=== PATIENT | male | born 1945 | race Caucasian/White ===

== ENCOUNTER 2020-08-23 21:40 | Inpatient (IN) ==
[2020-08-23] MEDS ORDERED: Sennosides/Docusate Sodium TABLET PO PRN (22:34)
[2020-08-23] MEDS ORDERED: Nitroglycerin 0.4 MG TAB.SUBL SL PRN (22:34)
[2020-08-23] MEDS ORDERED: Nystatin POWDER 30 GM BOTTLE TP PRN (22:34)
[2020-08-23] MEDS ORDERED: Furosemide 20 MG TABLET PO PRN (22:34)
[2020-08-23] MEDS ORDERED: Acetaminophen 325 MG TABLET PO PRN (22:34)
[2020-08-23] MEDS ORDERED: Ondansetron ODT 4 MG TAB.RAPDIS SL PRN (22:34)
[2020-08-23] MEDS ORDERED: *HR* Dextrose 50 % in Water (Vial) 50 ML VIAL IVP PRN (22:39)
[2020-08-23] MEDS ORDERED: Dextrose Gel 15 GM/37.5 ML TUBE PO PRN ×2 (22:39)
[2020-08-23] MEDS ORDERED: D5% in Water 1,000 ML IVC PRN (22:39)
[2020-08-24] MEDS: *HR* Enoxaparin 40 MG/0.4 ML SYRINGE SQ SCH (04:43)
[2020-08-24 04:53] LABS: Basophils # 0.1 K/mcL (0.0-0.2); Basophils % 0.8 %; Eosinophils # 0.3 K/mcL (0.0-0.6); Hematocrit 40.7 % (37.5-50.1); Hemoglobin 13.7 g/dL (12.9-16.9); Immature Granulocytes % 0.4 % (0-4); Lymphocytes # 1.4 K/mcL (0.6-4.6); Lymphocytes % 19.3 %; Mean Corpuscular HGB Conc 33.7 g/dL (31.6-35.5); Mean Corpuscular Hemoglobin 29.3 pg (28.0-33.3); Mean Corpuscular Volume 87.2 fL (83.0-100.0); Mean Platelet Volume 9.4 fL (9.4-12.4); Monocytes # 0.8 K/mcL (0.0-1.3); Monocytes % 10.5 %; Neutrophils # 4.7 K/mcL (1.6-8.9); Platelet Count 145 K/mcL (140-400); Red Blood Count 4.67 M/mcL (4.19-5.50); White Blood Count 7.2 K/mcL (4.3-11.1)
[2020-08-24 05:08] LABS: BUN/Creatinine Ratio 20 (6-26); Blood Urea Nitrogen 17 mg/dL (8-23); Carbon Dioxide 26 mEq/L (23-29); Chloride 101 mEq/L (98-107); Glucose 148 mg/dL (70-105); Osmolality,Calculated 288 (280-300); Potassium 3.9 mEq/L (3.5-5.1); Sodium 137 mEq/L (136-145); eGFR For African Americans > 60 (> 60); eGFR For Non-African Americans > 60 (> 60)
[2020-08-24] MEDS: Insulin LISPRO 300 UNITS/3 ML VIAL SUBQ SCH ×3 (08:01→18:45)
[2020-08-24] MEDS: carvediloL 6.25 MG TABLET PO SCH ×2 (08:53→18:45)
[2020-08-24] MEDS: Ranolazine 500 MG TAB.ER.12H PO SCH (08:53)
[2020-08-24] MEDS: Loratadine 10 MG TABLET PO SCH (08:54)
[2020-08-24] MEDS: Sucralfate 1 GM TABLET PO SCH ×2 (08:54→20:28)
[2020-08-24] MEDS: FLUoxetine 20 MG CAPSULE PO SCH (08:54)
[2020-08-24] MEDS: Aspirin Enteric Coated 81 MG Tablet PO SCH (08:54)
[2020-08-24] MEDS: Cyanocobalamin (B-12) 1,000 MCG TABLET PO SCH (08:54)
[2020-08-24] MEDS: NIFEdipine XL (24 HR) 60 MG TAB.ER.24 PO SCH (08:54)
[2020-08-24] MEDS: Gabapentin 300 MG CAPSULE PO SCH ×2 (08:54→20:28)
[2020-08-24] MEDS: Simethicone 80 MG TAB.CHEW PO SCH ×2 (08:55→20:27)
[2020-08-24] MEDS: Fluticasone Propionate Nasal 50 MCG/SPRAY BOTTLE NS SCH (08:56)
[2020-08-24] MEDS: polyethylene glycoL 3350 17 GM POWD.PACK PO SCH (08:56)
[2020-08-24] MEDS: Insulin DETEMIR 100 UNIT/ML X5UNITS SUBQ SCH ×2 (09:04→20:27)
[2020-08-24] MEDS: Melatonin 3 MG TABLET PO SCH (20:27)
[2020-08-24] MEDS: Famotidine 20 MG TABLET PO SCH (20:28)
[2020-08-25] MEDS: *HR* Enoxaparin 40 MG/0.4 ML SYRINGE SQ SCH (05:03)
[2020-08-25] MEDS: Insulin LISPRO 300 UNITS/3 ML VIAL SUBQ SCH ×3 (08:50→16:34)
[2020-08-25] MEDS: NIFEdipine XL (24 HR) 60 MG TAB.ER.24 PO SCH (09:52)
[2020-08-25] MEDS: Aspirin Enteric Coated 81 MG Tablet PO SCH (09:52)
[2020-08-25] MEDS: Simethicone 80 MG TAB.CHEW PO SCH ×2 (09:52→20:26)
[2020-08-25] MEDS: Gabapentin 300 MG CAPSULE PO SCH ×2 (09:52→20:25)
[2020-08-25] MEDS: Loratadine 10 MG TABLET PO SCH (09:52)
[2020-08-25] MEDS: Cyanocobalamin (B-12) 1,000 MCG TABLET PO SCH (09:52)
[2020-08-25] MEDS: Sucralfate 1 GM TABLET PO SCH ×2 (09:52→20:26)
[2020-08-25] MEDS: FLUoxetine 20 MG CAPSULE PO SCH (09:52)
[2020-08-25] MEDS: Ranolazine 500 MG TAB.ER.12H PO SCH (09:52)
[2020-08-25] MEDS: polyethylene glycoL 3350 17 GM POWD.PACK PO SCH (09:53)
[2020-08-25] MEDS: Fluticasone Propionate Nasal 50 MCG/SPRAY BOTTLE NS SCH (09:53)
[2020-08-25] MEDS: carvediloL 6.25 MG TABLET PO SCH ×2 (09:53→16:34)
[2020-08-25] MEDS: Insulin DETEMIR 100 UNIT/ML X5UNITS SUBQ SCH ×2 (10:37→20:32)
[2020-08-25] MEDS: Famotidine 20 MG TABLET PO SCH (20:26)
[2020-08-25] MEDS: Melatonin 3 MG TABLET PO SCH (20:26)
[2020-08-26] MEDS: *HR* Enoxaparin 40 MG/0.4 ML SYRINGE SQ SCH (05:03)
[2020-08-26] MEDS: Insulin LISPRO 300 UNITS/3 ML VIAL SUBQ SCH ×3 (07:51→16:48)
[2020-08-26] MEDS: Aspirin Enteric Coated 81 MG Tablet PO SCH (09:53)
[2020-08-26] MEDS: FLUoxetine 20 MG CAPSULE PO SCH (09:53)
[2020-08-26] MEDS: Simethicone 80 MG TAB.CHEW PO SCH ×2 (09:53→21:15)
[2020-08-26] MEDS: Loratadine 10 MG TABLET PO SCH (09:53)
[2020-08-26] MEDS: Ranolazine 500 MG TAB.ER.12H PO SCH (09:53)
[2020-08-26] MEDS: Sucralfate 1 GM TABLET PO SCH ×2 (09:53→21:15)
[2020-08-26] MEDS: NIFEdipine XL (24 HR) 60 MG TAB.ER.24 PO SCH (09:53)
[2020-08-26] MEDS: Cyanocobalamin (B-12) 1,000 MCG TABLET PO SCH (09:53)
[2020-08-26] MEDS: polyethylene glycoL 3350 17 GM POWD.PACK PO SCH (09:54)
[2020-08-26] MEDS: carvediloL 6.25 MG TABLET PO SCH ×2 (09:54→16:49)
[2020-08-26] MEDS: Fluticasone Propionate Nasal 50 MCG/SPRAY BOTTLE NS SCH (09:54)
[2020-08-26] MEDS: Gabapentin 300 MG CAPSULE PO SCH ×2 (09:54→21:15)
[2020-08-26] MEDS: Insulin DETEMIR 100 UNIT/ML X5UNITS SUBQ SCH ×2 (10:00→21:17)
[2020-08-26] MEDS: Famotidine 20 MG TABLET PO SCH (21:15)
[2020-08-26] MEDS: Melatonin 3 MG TABLET PO SCH (21:15)
[2020-08-27] MEDS: *HR* Enoxaparin 40 MG/0.4 ML SYRINGE SQ SCH (06:07)
[2020-08-27] MEDS: Insulin LISPRO 300 UNITS/3 ML VIAL SUBQ SCH ×3 (08:28→17:13)
[2020-08-27] MEDS: Aspirin Enteric Coated 81 MG Tablet PO SCH (08:29)
[2020-08-27] MEDS: NIFEdipine XL (24 HR) 60 MG TAB.ER.24 PO SCH (08:29)
[2020-08-27] MEDS: Ranolazine 500 MG TAB.ER.12H PO SCH (08:29)
[2020-08-27] MEDS: Sucralfate 1 GM TABLET PO SCH ×2 (08:29→20:15)
[2020-08-27] MEDS: Insulin DETEMIR 100 UNIT/ML X5UNITS SUBQ SCH ×2 (08:29→20:16)
[2020-08-27] MEDS: Gabapentin 300 MG CAPSULE PO SCH ×2 (08:29→20:15)
[2020-08-27] MEDS: carvediloL 6.25 MG TABLET PO SCH ×2 (08:30→17:13)
[2020-08-27] MEDS: Simethicone 80 MG TAB.CHEW PO SCH ×2 (08:30→20:15)
[2020-08-27] MEDS: Fluticasone Propionate Nasal 50 MCG/SPRAY BOTTLE NS SCH (08:30)
[2020-08-27] MEDS: FLUoxetine 20 MG CAPSULE PO SCH (08:30)
[2020-08-27] MEDS: Loratadine 10 MG TABLET PO SCH (08:30)
[2020-08-27] MEDS: Cyanocobalamin (B-12) 1,000 MCG TABLET PO SCH (08:30)
[2020-08-27] MEDS: polyethylene glycoL 3350 17 GM POWD.PACK PO SCH (08:37)
[2020-08-27] MEDS: Famotidine 20 MG TABLET PO SCH (20:14)
[2020-08-27] MEDS: Melatonin 3 MG TABLET PO SCH (20:15)
[2020-08-28] MEDS: *HR* Enoxaparin 40 MG/0.4 ML SYRINGE SQ SCH (05:43)
[2020-08-28] MEDS: Simethicone 80 MG TAB.CHEW PO SCH ×2 (09:05→21:17)
[2020-08-28] MEDS: Ranolazine 500 MG TAB.ER.12H PO SCH (09:05)
[2020-08-28] MEDS: FLUoxetine 20 MG CAPSULE PO SCH (09:05)
[2020-08-28] MEDS: Sucralfate 1 GM TABLET PO SCH ×2 (09:05→21:17)
[2020-08-28] MEDS: Loratadine 10 MG TABLET PO SCH (09:05)
[2020-08-28] MEDS: Cyanocobalamin (B-12) 1,000 MCG TABLET PO SCH (09:05)
[2020-08-28] MEDS: Aspirin Enteric Coated 81 MG Tablet PO SCH (09:05)
[2020-08-28] MEDS: NIFEdipine XL (24 HR) 60 MG TAB.ER.24 PO SCH (09:05)
[2020-08-28] MEDS: Gabapentin 300 MG CAPSULE PO SCH ×2 (09:05→21:17)
[2020-08-28] MEDS: carvediloL 6.25 MG TABLET PO SCH ×2 (09:05→17:01)
[2020-08-28] MEDS: Insulin LISPRO 300 UNITS/3 ML VIAL SUBQ SCH ×3 (09:06→17:02)
[2020-08-28] MEDS: Fluticasone Propionate Nasal 50 MCG/SPRAY BOTTLE NS SCH (09:06)
[2020-08-28] MEDS: Insulin DETEMIR 100 UNIT/ML X5UNITS SUBQ SCH ×2 (09:12→21:18)
[2020-08-28] MEDS: polyethylene glycoL 3350 17 GM POWD.PACK PO SCH (09:14)
[2020-08-28] MEDS ORDERED: Bisacodyl 10 MG RECTAL SUPPOSITORY RC ONE (10:48)
[2020-08-28] MEDS: Melatonin 3 MG TABLET PO SCH (21:17)
[2020-08-28] MEDS: Famotidine 20 MG TABLET PO SCH (21:17)
[2020-08-29 05:16] LABS: Basophils # 0.1 K/mcL (0.0-0.2); Eosinophils # 0.3 K/mcL (0.0-0.6); Eosinophils % 4.6 %; Hematocrit 37.4 % (37.5-50.1); Hemoglobin 12.5 g/dL (12.9-16.9); Immature Granulocytes % 0.7 % (0-4); Lymphocytes # 1.7 K/mcL (0.6-4.6); Lymphocytes % 28.1 %; Mean Corpuscular HGB Conc 33.4 g/dL (31.6-35.5); Mean Corpuscular Hemoglobin 29.3 pg (28.0-33.3); Mean Corpuscular Volume 87.8 fL (83.0-100.0); Mean Platelet Volume 9.7 fL (9.4-12.4); Monocytes # 0.6 K/mcL (0.0-1.3); Neutrophils # 3.3 K/mcL (1.6-8.9); Platelet Count 149 K/mcL (140-400); Red Blood Count 4.26 M/mcL (4.19-5.50); Red Cell Distribution Width 13.1 % (11.5-14.5); Segmented Neutrophils % 55.6 %; White Blood Count 5.9 K/mcL (4.3-11.1)
[2020-08-29] MEDS: *HR* Enoxaparin 40 MG/0.4 ML SYRINGE SQ SCH (05:26)
[2020-08-29 05:33] LABS: BUN/Creatinine Ratio 15 (6-26); Blood Urea Nitrogen 12 mg/dL (8-23); Calcium 8.7 mg/dL (8.6-10.3); Carbon Dioxide 29 mEq/L (23-29); Chloride 102 mEq/L (98-107); Glucose 223 mg/dL (70-105); Osmolality,Calculated 289 (280-300); Potassium 4.4 mEq/L (3.5-5.1); Sodium 136 mEq/L (136-145); eGFR For African Americans > 60 (> 60); eGFR For Non-African Americans > 60 (> 60)
[2020-08-29] MEDS: Ranolazine 500 MG TAB.ER.12H PO SCH (09:14)
[2020-08-29] MEDS: carvediloL 6.25 MG TABLET PO SCH ×2 (09:14→16:46)
[2020-08-29] MEDS: FLUoxetine 20 MG CAPSULE PO SCH (09:14)
[2020-08-29] MEDS: Aspirin Enteric Coated 81 MG Tablet PO SCH (09:15)
[2020-08-29] MEDS: Sucralfate 1 GM TABLET PO SCH ×2 (09:15→20:42)
[2020-08-29] MEDS: Cyanocobalamin (B-12) 1,000 MCG TABLET PO SCH (09:15)
[2020-08-29] MEDS: Simethicone 80 MG TAB.CHEW PO SCH ×2 (09:15→20:42)
[2020-08-29] MEDS: Loratadine 10 MG TABLET PO SCH (09:15)
[2020-08-29] MEDS: NIFEdipine XL (24 HR) 60 MG TAB.ER.24 PO SCH (09:15)
[2020-08-29] MEDS: Fluticasone Propionate Nasal 50 MCG/SPRAY BOTTLE NS SCH (09:16)
[2020-08-29] MEDS: Gabapentin 300 MG CAPSULE PO SCH ×2 (09:16→20:41)
[2020-08-29] MEDS: polyethylene glycoL 3350 17 GM POWD.PACK PO SCH (09:16)
[2020-08-29] MEDS: Insulin LISPRO 300 UNITS/3 ML VIAL SUBQ SCH ×3 (09:26→16:47)
[2020-08-29] MEDS: Insulin DETEMIR 100 UNIT/ML X5UNITS SUBQ SCH ×2 (09:26→20:42)
[2020-08-29] MEDS: Famotidine 20 MG TABLET PO SCH (20:39)
[2020-08-29] MEDS: Melatonin 3 MG TABLET PO SCH (20:41)
[2020-08-30] MEDS: *HR* Enoxaparin 40 MG/0.4 ML SYRINGE SQ SCH (05:15)
[2020-08-30] MEDS: Cyanocobalamin (B-12) 1,000 MCG TABLET PO SCH (08:31)
[2020-08-30] MEDS: Aspirin Enteric Coated 81 MG Tablet PO SCH (08:31)
[2020-08-30] MEDS: NIFEdipine XL (24 HR) 60 MG TAB.ER.24 PO SCH (08:31)
[2020-08-30] MEDS: Simethicone 80 MG TAB.CHEW PO SCH ×2 (08:31→22:11)
[2020-08-30] MEDS: Loratadine 10 MG TABLET PO SCH (08:31)
[2020-08-30] MEDS: FLUoxetine 20 MG CAPSULE PO SCH (08:31)
[2020-08-30] MEDS: carvediloL 6.25 MG TABLET PO SCH ×2 (08:32→16:57)
[2020-08-30] MEDS: Sucralfate 1 GM TABLET PO SCH ×2 (08:33→22:11)
[2020-08-30] MEDS: Gabapentin 300 MG CAPSULE PO SCH ×2 (08:33→22:12)
[2020-08-30] MEDS: Ranolazine 500 MG TAB.ER.12H PO SCH (08:33)
[2020-08-30] MEDS: polyethylene glycoL 3350 17 GM POWD.PACK PO SCH (08:36)
[2020-08-30] MEDS: Insulin LISPRO 300 UNITS/3 ML VIAL SUBQ SCH ×3 (08:42→16:58)
[2020-08-30] MEDS: Insulin DETEMIR 100 UNIT/ML X5UNITS SUBQ SCH ×2 (08:42→22:12)
[2020-08-30] MEDS: Fluticasone Propionate Nasal 50 MCG/SPRAY BOTTLE NS SCH (08:43)
[2020-08-30] MEDS: Famotidine 20 MG TABLET PO SCH (22:11)
[2020-08-30] MEDS: Melatonin 3 MG TABLET PO SCH (22:11)
[2020-08-31] MEDS: *HR* Enoxaparin 40 MG/0.4 ML SYRINGE SQ SCH (05:01)
[2020-08-31] MEDS: polyethylene glycoL 3350 17 GM POWD.PACK PO SCH (08:45)
[2020-08-31] MEDS: Insulin LISPRO 300 UNITS/3 ML VIAL SUBQ SCH ×3 (08:45→16:55)
[2020-08-31] MEDS: Sucralfate 1 GM TABLET PO SCH ×2 (08:45→20:26)
[2020-08-31] MEDS: Cyanocobalamin (B-12) 1,000 MCG TABLET PO SCH (08:46)
[2020-08-31] MEDS: Simethicone 80 MG TAB.CHEW PO SCH ×2 (08:46→20:27)
[2020-08-31] MEDS: Loratadine 10 MG TABLET PO SCH (08:46)
[2020-08-31] MEDS: NIFEdipine XL (24 HR) 60 MG TAB.ER.24 PO SCH (08:46)
[2020-08-31] MEDS: carvediloL 6.25 MG TABLET PO SCH ×2 (08:47→16:55)
[2020-08-31] MEDS: Gabapentin 300 MG CAPSULE PO SCH ×2 (08:47→20:25)
[2020-08-31] MEDS: Aspirin Enteric Coated 81 MG Tablet PO SCH (08:47)
[2020-08-31] MEDS: Ranolazine 500 MG TAB.ER.12H PO SCH (08:47)
[2020-08-31] MEDS: FLUoxetine 20 MG CAPSULE PO SCH (08:47)
[2020-08-31] MEDS: Fluticasone Propionate Nasal 50 MCG/SPRAY BOTTLE NS SCH (08:48)
[2020-08-31] MEDS: Insulin DETEMIR 100 UNIT/ML X5UNITS SUBQ SCH ×2 (08:55→20:27)
[2020-08-31] MEDS: Melatonin 3 MG TABLET PO SCH (20:26)
[2020-08-31] MEDS: Famotidine 20 MG TABLET PO SCH (20:26)
[2020-09-01] MEDS: *HR* Enoxaparin 40 MG/0.4 ML SYRINGE SQ SCH (04:21)
[2020-09-01] MEDS: Insulin LISPRO 300 UNITS/3 ML VIAL SUBQ SCH ×3 (08:53→17:42)
[2020-09-01] MEDS: polyethylene glycoL 3350 17 GM POWD.PACK PO SCH (08:53)
[2020-09-01] MEDS: Insulin DETEMIR 100 UNIT/ML X5UNITS SUBQ SCH ×2 (08:54→21:32)
[2020-09-01] MEDS: Ranolazine 500 MG TAB.ER.12H PO SCH (08:55)
[2020-09-01] MEDS: Gabapentin 300 MG CAPSULE PO SCH ×2 (08:55→21:30)
[2020-09-01] MEDS: Cyanocobalamin (B-12) 1,000 MCG TABLET PO SCH (08:55)
[2020-09-01] MEDS: FLUoxetine 20 MG CAPSULE PO SCH (08:55)
[2020-09-01] MEDS: Aspirin Enteric Coated 81 MG Tablet PO SCH (08:55)
[2020-09-01] MEDS: Loratadine 10 MG TABLET PO SCH (08:55)
[2020-09-01] MEDS: Simethicone 80 MG TAB.CHEW PO SCH ×2 (08:56→21:31)
[2020-09-01] MEDS: Sucralfate 1 GM TABLET PO SCH ×2 (08:56→21:29)
[2020-09-01] MEDS: Fluticasone Propionate Nasal 50 MCG/SPRAY BOTTLE NS SCH (08:56)
[2020-09-01] MEDS: carvediloL 6.25 MG TABLET PO SCH ×2 (08:56→17:42)
[2020-09-01] MEDS: NIFEdipine XL (24 HR) 60 MG TAB.ER.24 PO SCH (08:56)
[2020-09-01] MEDS: Melatonin 3 MG TABLET PO SCH (21:30)
[2020-09-01] MEDS: Famotidine 20 MG TABLET PO SCH (21:30)
[2020-09-02] MEDS: *HR* Enoxaparin 40 MG/0.4 ML SYRINGE SQ SCH (04:50)
[2020-09-02] MEDS: Ranolazine 500 MG TAB.ER.12H PO SCH (09:14)
[2020-09-02] MEDS: Cyanocobalamin (B-12) 1,000 MCG TABLET PO SCH (09:14)
[2020-09-02] MEDS: Sucralfate 1 GM TABLET PO SCH ×2 (09:15→20:22)
[2020-09-02] MEDS: Loratadine 10 MG TABLET PO SCH (09:15)
[2020-09-02] MEDS: Gabapentin 300 MG CAPSULE PO SCH ×2 (09:15→20:23)
[2020-09-02] MEDS: Simethicone 80 MG TAB.CHEW PO SCH ×2 (09:15→20:23)
[2020-09-02] MEDS: Insulin DETEMIR 100 UNIT/ML X5UNITS SUBQ SCH ×2 (09:15→20:28)
[2020-09-02] MEDS: Fluticasone Propionate Nasal 50 MCG/SPRAY BOTTLE NS SCH (09:16)
[2020-09-02] MEDS: Aspirin Enteric Coated 81 MG Tablet PO SCH (09:16)
[2020-09-02] MEDS: polyethylene glycoL 3350 17 GM POWD.PACK PO SCH (09:16)
[2020-09-02] MEDS: carvediloL 6.25 MG TABLET PO SCH ×2 (09:16→17:47)
[2020-09-02] MEDS: FLUoxetine 20 MG CAPSULE PO SCH (09:16)
[2020-09-02] MEDS: NIFEdipine XL (24 HR) 60 MG TAB.ER.24 PO SCH (09:16)
[2020-09-02] MEDS: Insulin LISPRO 300 UNITS/3 ML VIAL SUBQ SCH ×4 (09:28→21:12)
[2020-09-02] MEDS: Famotidine 20 MG TABLET PO SCH (20:22)
[2020-09-02] MEDS: Melatonin 3 MG TABLET PO SCH (20:22)
[2020-09-02] MEDS ORDERED: Insulin LISPRO 300 UNITS/3 ML VIAL SUBQ SCH (20:45)
[2020-09-03] MEDS: *HR* Enoxaparin 40 MG/0.4 ML SYRINGE SQ SCH (04:46)
[2020-09-03] MEDS: Gabapentin 300 MG CAPSULE PO SCH ×2 (09:33→20:41)
[2020-09-03] MEDS: Aspirin Enteric Coated 81 MG Tablet PO SCH (09:33)
[2020-09-03] MEDS: Insulin DETEMIR 100 UNIT/ML X5UNITS SUBQ SCH (09:33)
[2020-09-03] MEDS: Simethicone 80 MG TAB.CHEW PO SCH ×2 (09:34→20:40)
[2020-09-03] MEDS: Ranolazine 500 MG TAB.ER.12H PO SCH (09:34)
[2020-09-03] MEDS: Loratadine 10 MG TABLET PO SCH (09:34)
[2020-09-03] MEDS: Sucralfate 1 GM TABLET PO SCH ×2 (09:34→20:40)
[2020-09-03] MEDS: Cyanocobalamin (B-12) 1,000 MCG TABLET PO SCH (09:34)
[2020-09-03] MEDS: FLUoxetine 20 MG CAPSULE PO SCH (09:37)
[2020-09-03] MEDS: Fluticasone Propionate Nasal 50 MCG/SPRAY BOTTLE NS SCH (09:37)
[2020-09-03] MEDS: polyethylene glycoL 3350 17 GM POWD.PACK PO SCH (09:37)
[2020-09-03] MEDS: carvediloL 6.25 MG TABLET PO SCH ×2 (09:37→17:36)
[2020-09-03] MEDS: NIFEdipine XL (24 HR) 60 MG TAB.ER.24 PO SCH (09:38)
[2020-09-03] MEDS: Insulin LISPRO 300 UNITS/3 ML VIAL SUBQ SCH ×4 (09:41→20:45)
[2020-09-03] MEDS: Melatonin 3 MG TABLET PO SCH (20:40)
[2020-09-03] MEDS: Famotidine 20 MG TABLET PO SCH (20:41)
[2020-09-03] MEDS: Insulin DETEMIR 100 UNIT/ML per UNIT SUBQ SCH (20:45)
[2020-09-04] MEDS: *HR* Enoxaparin 40 MG/0.4 ML SYRINGE SQ SCH (05:32)
[2020-09-04] MEDS: Insulin LISPRO 300 UNITS/3 ML VIAL SUBQ SCH ×4 (08:16→21:25)
[2020-09-04] MEDS: Sucralfate 1 GM TABLET PO SCH ×2 (08:25→21:23)
[2020-09-04] MEDS: polyethylene glycoL 3350 17 GM POWD.PACK PO SCH (08:25)
[2020-09-04] MEDS: NIFEdipine XL (24 HR) 60 MG TAB.ER.24 PO SCH (08:25)
[2020-09-04] MEDS: Loratadine 10 MG TABLET PO SCH (08:26)
[2020-09-04] MEDS: Ranolazine 500 MG TAB.ER.12H PO SCH (08:26)
[2020-09-04] MEDS: FLUoxetine 20 MG CAPSULE PO SCH (08:26)
[2020-09-04] MEDS: Simethicone 80 MG TAB.CHEW PO SCH ×2 (08:26→21:24)
[2020-09-04] MEDS: Gabapentin 300 MG CAPSULE PO SCH ×2 (08:26→21:24)
[2020-09-04] MEDS: Aspirin Enteric Coated 81 MG Tablet PO SCH (08:26)
[2020-09-04] MEDS: Cyanocobalamin (B-12) 1,000 MCG TABLET PO SCH (08:26)
[2020-09-04] MEDS: carvediloL 6.25 MG TABLET PO SCH ×2 (08:26→16:37)
[2020-09-04] MEDS: Insulin DETEMIR 100 UNIT/ML per UNIT SUBQ SCH (08:27)
[2020-09-04] MEDS: Fluticasone Propionate Nasal 50 MCG/SPRAY BOTTLE NS SCH (08:32)
[2020-09-04] MEDS: Famotidine 20 MG TABLET PO SCH (21:24)
[2020-09-04] MEDS: Melatonin 3 MG TABLET PO SCH (21:24)
[2020-09-04] MEDS: Insulin DETEMIR 100 UNIT/ML X5UNITS SUBQ SCH (21:25)
[2020-09-05] MEDS: *HR* Enoxaparin 40 MG/0.4 ML SYRINGE SQ SCH (05:43)
[2020-09-05] MEDS: Insulin LISPRO 300 UNITS/3 ML VIAL SUBQ SCH ×4 (08:40→20:37)
[2020-09-05] MEDS: Insulin DETEMIR 100 UNIT/ML X5UNITS SUBQ SCH ×2 (08:41→20:36)
[2020-09-05] MEDS: Loratadine 10 MG TABLET PO SCH (08:42)
[2020-09-05] MEDS: Aspirin Enteric Coated 81 MG Tablet PO SCH (08:42)
[2020-09-05] MEDS: Ranolazine 500 MG TAB.ER.12H PO SCH (08:42)
[2020-09-05] MEDS: FLUoxetine 20 MG CAPSULE PO SCH (08:42)
[2020-09-05] MEDS: NIFEdipine XL (24 HR) 60 MG TAB.ER.24 PO SCH (08:42)
[2020-09-05] MEDS: Gabapentin 300 MG CAPSULE PO SCH ×2 (08:42→20:36)
[2020-09-05] MEDS: Cyanocobalamin (B-12) 1,000 MCG TABLET PO SCH (08:42)
[2020-09-05] MEDS: carvediloL 6.25 MG TABLET PO SCH ×2 (08:42→16:44)
[2020-09-05] MEDS: polyethylene glycoL 3350 17 GM POWD.PACK PO SCH (08:42)
[2020-09-05] MEDS: Simethicone 80 MG TAB.CHEW PO SCH ×2 (08:42→20:36)
[2020-09-05] MEDS: Sucralfate 1 GM TABLET PO SCH ×2 (08:43→20:36)
[2020-09-05] MEDS: Fluticasone Propionate Nasal 50 MCG/SPRAY BOTTLE NS SCH (08:47)
[2020-09-05] MEDS: Famotidine 20 MG TABLET PO SCH (20:36)
[2020-09-05] MEDS: Melatonin 3 MG TABLET PO SCH (20:38)
[2020-09-06] MEDS: *HR* Enoxaparin 40 MG/0.4 ML SYRINGE SQ SCH (06:29)
[2020-09-06] MEDS: Fluticasone Propionate Nasal 50 MCG/SPRAY BOTTLE NS SCH (08:57)
[2020-09-06] MEDS: Insulin DETEMIR 100 UNIT/ML X5UNITS SUBQ SCH ×2 (08:58→21:55)
[2020-09-06] MEDS: Simethicone 80 MG TAB.CHEW PO SCH ×2 (08:58→21:54)
[2020-09-06] MEDS: Insulin LISPRO 300 UNITS/3 ML VIAL SUBQ SCH ×4 (08:59→21:56)
[2020-09-06] MEDS: Cyanocobalamin (B-12) 1,000 MCG TABLET PO SCH (09:00)
[2020-09-06] MEDS: Loratadine 10 MG TABLET PO SCH (09:00)
[2020-09-06] MEDS: Gabapentin 300 MG CAPSULE PO SCH ×2 (09:00→21:55)
[2020-09-06] MEDS: Ranolazine 500 MG TAB.ER.12H PO SCH (09:00)
[2020-09-06] MEDS: Sucralfate 1 GM TABLET PO SCH ×2 (09:00→21:54)
[2020-09-06] MEDS: polyethylene glycoL 3350 17 GM POWD.PACK PO SCH (09:00)
[2020-09-06] MEDS: carvediloL 6.25 MG TABLET PO SCH ×2 (09:00→17:07)
[2020-09-06] MEDS: Aspirin Enteric Coated 81 MG Tablet PO SCH (09:01)
[2020-09-06] MEDS: FLUoxetine 20 MG CAPSULE PO SCH (09:01)
[2020-09-06] MEDS: NIFEdipine XL (24 HR) 60 MG TAB.ER.24 PO SCH (09:01)
[2020-09-06] MEDS: Famotidine 20 MG TABLET PO SCH (21:55)
[2020-09-06] MEDS: Melatonin 3 MG TABLET PO SCH (21:55)
[2020-09-07] MEDS: *HR* Enoxaparin 40 MG/0.4 ML SYRINGE SQ SCH (06:07)
[2020-09-07 07:41] VITALS: BP 129/73
[2020-09-07] MEDS: Insulin DETEMIR 100 UNIT/ML X5UNITS SUBQ SCH (08:34)
[2020-09-07] MEDS: Insulin LISPRO 300 UNITS/3 ML VIAL SUBQ SCH ×2 (08:34→12:08)
[2020-09-07] MEDS: FLUoxetine 20 MG CAPSULE PO SCH (08:36)
[2020-09-07] MEDS: polyethylene glycoL 3350 17 GM POWD.PACK PO SCH (08:36)
[2020-09-07] MEDS: Simethicone 80 MG TAB.CHEW PO SCH (08:37)
[2020-09-07] MEDS: carvediloL 6.25 MG TABLET PO SCH (08:37)
[2020-09-07] MEDS: Aspirin Enteric Coated 81 MG Tablet PO SCH (08:37)
[2020-09-07] MEDS: Cyanocobalamin (B-12) 1,000 MCG TABLET PO SCH (08:37)
[2020-09-07] MEDS: Sucralfate 1 GM TABLET PO SCH (08:37)
[2020-09-07] MEDS: Gabapentin 300 MG CAPSULE PO SCH (08:37)
[2020-09-07] MEDS: Ranolazine 500 MG TAB.ER.12H PO SCH (08:37)
[2020-09-07] MEDS: NIFEdipine XL (24 HR) 60 MG TAB.ER.24 PO SCH (08:37)
[2020-09-07] MEDS: Loratadine 10 MG TABLET PO SCH (08:38)
[2020-09-07] MEDS: Fluticasone Propionate Nasal 50 MCG/SPRAY BOTTLE NS SCH (08:38)
== END 2020-09-07 12:52 | disposition home health service (06) | DRG 57 ==
LOC: INPGRE 21:40
PROVIDERS: ADMIT Family Medicine; ATTEND Family Medicine